=== PATIENT | female | born 1965 | race Caucasian/White ===

== ENCOUNTER 2023-07-06 09:17 | Emergency (ER) | payer BC, SELFPAY ==
--- NOTE | ~2023-07-06 | XR_ITS ---
EXAMINATION: XR LEFT FOOT XR LEFT ANKLE XR CHEST CLINICAL INFORMATION: Productive cough. Trauma to lateral foot. COMPARISON: None. TECHNIQUE: AP, lateral, and mortise views of the left ankle and left foot were obtained. PA and lateral views of the chest were obtained. FINDINGS: Chest: The lungs are well expanded. No focal consolidation. No pleural effusion. Cardiac silhouette is within normal limits. Left ankle: Alignment is anatomic. Joint spaces are preserved. No displace fracture or dislocation. Left foot: Alignment is anatomic. Joint spaces are preserved. No displace fracture or dislocation. Posterior and plantar calcaneal spurs. XR/XR foot LT min 3V IMPRESSION: No acute abnormality.
--- NOTE | ~2023-07-06 | XR_ITS ---
EXAMINATION: XR LEFT FOOT XR LEFT ANKLE XR CHEST CLINICAL INFORMATION: Productive cough. Trauma to lateral foot. COMPARISON: None. TECHNIQUE: AP, lateral, and mortise views of the left ankle and left foot were obtained. PA and lateral views of the chest were obtained. FINDINGS: Chest: The lungs are well expanded. No focal consolidation. No pleural effusion. Cardiac silhouette is within normal limits. Left ankle: Alignment is anatomic. Joint spaces are preserved. No displace fracture or dislocation. Left foot: Alignment is anatomic. Joint spaces are preserved. No displace fracture or dislocation. Posterior and plantar calcaneal spurs. XR/XR ankle LT min 3V IMPRESSION: No acute abnormality.
--- NOTE | ~2023-07-06 | XR_ITS ---
EXAMINATION: XR LEFT FOOT XR LEFT ANKLE XR CHEST CLINICAL INFORMATION: Productive cough. Trauma to lateral foot. COMPARISON: None. TECHNIQUE: AP, lateral, and mortise views of the left ankle and left foot were obtained. PA and lateral views of the chest were obtained. FINDINGS: Chest: The lungs are well expanded. No focal consolidation. No pleural effusion. Cardiac silhouette is within normal limits. Left ankle: Alignment is anatomic. Joint spaces are preserved. No displace fracture or dislocation. Left foot: Alignment is anatomic. Joint spaces are preserved. No displace fracture or dislocation. Posterior and plantar calcaneal spurs. XR/XR chest 2V IMPRESSION: No acute abnormality.
[2023-07-06 09:21] VITALS: BP 149/88; PULSE 80; RESP 18; TEMP 36.1; O2SAT 96; BMI 27.0
--- NOTE | 2023-07-06 09:40 | ED_ITS ---
HPI - URI/Sore Throat General Chief Complaint: Upper Respiratory Symptoms Stated Complaint: cough getting worse Time Seen by Provider: 07/06/23 09:39 Source: patient Mode of arrival: ambulatory Limitations: no limitations History of Present Illness HPI Narrative: 58-year old female with no significant pmhx presents to the ED today with complaint of cough with lange/yellow sputum production x2 weeks. Endorses recent plane flight to [place] two weeks ago, returned 6 days ago. Upon arrival to [place] states she began having throat irritation and soon after developed a productive cough that's been worsening since returning home. Had a zoom appointment with her PCP this am, heart rate was noted to be 95, and was advised to come to the ED for further evaluation. Additionally endorses left foot pain/ swelling s/p jamming her left foot into a piece of furniture while in [place]. States she feels like her toe is broken. Ambulating with steady gait. Denies DANIELS, dizziness, fever, chills, chest pain, palpitations, SOB, N/V, abdominal pain, diarrhea/constipation, LE pain/ swelling. Denies tobacco use. Related Data Previous Rx's Medication Instructions Recorded benzonatate 100 mg capsule 200 mg (2 x 100 mg) PO TID PRN 07/06/23 cough 4 days #24 caps Allergies Allergy/AdvReac Type Severity Reaction Status Date / Time No Known Allergies Allergy Verified 07/06/23 09:20 Review of Systems 2 Review of Systems: Constitutional: No fever, chills, fatigue, night sweats, weight changes ENT/Mouth: No ear pain, hearing loss, nasal congestion, sinus pain, rhinorrhea, sore throat Eyes: No eye pain, swelling, redness, vision changes, discharge Cardio: No chest pain, palpitations, ALBERTO, orthopnea, peripheral edema Pulm: No SOB, + cough, + sputum, No wheezing, dyspnea, hemoptysis GI: No nausea, vomiting, hematemesis, abdominal pain, diarrhea, constipation, hematochezia, melena : No irregular bleeding, dysuria, frequency, urgency, hesitancy, hematuria, flank pain, urinary flow changes MSK: No back pain, neck pain, joint pain, myalgias, +left foot/toe pain Skin: No lesions, rashes Neuro: No weakness, numbness, paresthesias, LOC, dizziness, headache All other systems reviewed and are negative. [facility] [place] Past Medical History Attestation statement: The following information was validated with the patient. Source: old records reviewed and nursing notes reviewed Social History Social History Advance Directives: No Advance Directives Information Provided: Yes Physical Exam 2 Vital Signs: Vital Signs: Last Vital Signs Temp 97 F 07/06/23 09:21 Pulse 80 07/06/23 09:21 Resp 18 07/06/23 09:21 BP 149/88 H 07/06/23 09:21 Pulse Ox 96 07/06/23 09:21 O2 Del Method Room Air 07/06/23 09:21 BMI result Body Mass Index 27.0 Vital signs stable Const: General: cooperative, healthy appearing, comfortable, no acute distress, alert and awake Nutritional Appearance: average body habitus O rientation/consciousness: patient oriented x3 Limitations: no limitations HEENT: Other: + Oral mucous membranes moist. Posterior oropharynx without erythema/ edema. No tonsillar exudates. Uvular midline. Speaking in complete sentences. Controlling secretions. Head: Yes normal to inspection Ears: hearing grossly normal bilaterally General nose exam: Normal external nose present Eyes: General: appearance normal, both eyes and all related structures C onjunctivae: conjunctivae normal Sclerae: sclerae normal Pupils: Equal, round and reactive pupils present EOM: EOMs intact bilaterally Neck: Neck: Yes no lymphadenopathy Chest: Chest palpation & inspection: normal inspection of the chest, normal palpation of entire chest wall, no crepitus and no tenderness Resp: Other: + Effort & Inspection: normal respiratory effort and able to speak in complete sentences Auscultation: clear to auscultation bilaterally Cardio: Rate: regular rate Rhythm: regular rhythm Heart sounds: S1 normal heart sound present and S2 normal heart sound present Peripheral pulses: Peripheral pulses 2+ throughout GI: Inspection: Yes normal to inspection Palpation (GI): Soft to palpation, nontender, no guarding and hepatosplenomegaly present : General: Yes no CVA tenderness Back/Spine/Pelvis: Back: no CVA tenderness Skin: General skin exam: no rashes or lesions noted Neuro: General: patient oriented x3, gait normal and moves all extremities Cranial nerves: Yes CN's II-XII intact bilaterally and Yes Equal, round and reactive pupils present Extrem: General: Yes normal to inspection and Yes full ROM Course Course Course Narrative: 1107-- CBC without leukocytosis or anemia. Chemistry without any acute electrolyte abnormality requiring intervention. Serology negative for COVID and influenza. XR left foot/ankle without acute fracture or abnormality. Patient likely has an msk sprain/strain. Advised her to take Tylenol/ Ibuprofen as needed for pain and to RICE area. CXR does not show infiltrate/ consolidation indicating pneumonia. D dimer is negative- no VTE. Patient's symptoms are consistent with an upper respiratory infection. I will send patient home with tomas benson script for cough. Advised her to follow up with her PCP. Discussed prompt return precautions. All questions answered at this time. Patient is agreeable with disposition and stable for discharge. Medical Decision Making Medical Decision Making [facility] Narrative: 58-year old female with no significant pmhx presents to the ED today with complaint of cough with lange/yellow sputum production x2 weeks. Vital signs are stable. Not tachycardic. Afebrile. RRR. Patient actively coughing in room, hoarse voice. Lungs with rhonchi to left lung base. Right lung CTA. DP/PT pulses 2+ bilaterally. Negative zhanna's sign b/l. Clinical concern for viral syndrome, pneumonia, bronchitis, asthma, PE. Concern for msk sprain/ strain, fracture, dislocation. Unlikely threat to limb, compartment syndrome, NV compromise, DVT. Plan at this time is labs, serology, and imaging. Differential Diagnosis Differential Diagnoses: The differential diagnosis associated with the presentation includes As above. Admission/Observation Not indicated. Lab Data [facility] Lab Attestation statement: I reviewed the patient's lab results. As above. 07/06/23 10:12 07/06/23 10:12 Labs: Lab Results 07/06/23 07/06/23 Range/Units 10:12 10:28 WBC 4.4 L (4.8-10.8) X10*3/uL RBC 4.91 (4.20-5.50) X10*6/uL Hgb 13.5 (12.0-16.0) g/dl Hct 41.1 (37.0-47.0) % MCV 83.7 (80.0-98.0) fL MCH 27.5 (27.0-33.0) pg MCHC 32.8 (31.0-35.0) g/dl RDW 13.5 (11.0-16.0) % Plt Count 216 (160-400) X10*3/uL MPV 9.7 (9.4-12.3) fL Immature Gran % (Auto) 0.7 H (0.0-0.4) % Neut % (Auto) 60.5 (45-73) % Lymph % (Auto) 24.5 (20-40) % Russell % (Auto) 8.2 (2-11) % Eos % (Auto) 5.2 H (0-4) % Baso % (Auto) 0.9 (0-2) % Lymph # (Auto) 1.1 L (1.2-4.9) X10*3/uL Russell # (Auto) 0.4 (0.1-1.2) X10*3/uL Eos # (Auto) 0.2 (0.0-0.4) X10*3/uL Baso # (Auto) 0.0 (0.0-0.2) X10*3/uL Abs Immat Gran (auto) 0.03 (0.00-0.03) X10*3/uL Absolute Neuts (auto) 2.7 (2.0-8.3) x10*3/uL Absolute Nucleated RBC 0.000 (0.0-0.012) X10*3/uL Nucleated RBC % (auto) 0.0 (0.0-0.2) /100WBC D-Dimer High Sensitivty < 150 NG/ML Sodium 144 (135-145) mmol/L Potassium 4.0 (3.3-5.1) mmol/L Chloride 108 (96-108) mmol/L Carbon Dioxide 25 (22-29) mmol/L Anion Gap 15 (12-20) BUN 24 H (9-16) mg/dL Creatinine 0.84 (0.5-1.4) mg/dL Estim Creat Clear Calc 85.6 Estimated GFR > 60 Random Glucose 98 (60-115) mg/dL Calcium 9.3 (8.4-10.2) mg/dL Magnesium 2.1 (1.6-2.6) mg/dL Lipase 26 (8-78) U/L COVID-19 (NENA) Negative (Negative) COVID-19 Clin Com See Note Influenza Type A (MICHAEL) Negative (Negative) Influenza Type B (MICHAEL) Negative (Negative) Influenza A & B Note See Note Independent Interpretation I performed an independent interpretation of an: Plain X-Ray Interpretation: X-ray left foot/ ankle without acute fracture, agree with radiologist's interpretation. Chest x-ray without infiltration or consolidation, agree with radiologist's interpretation. Radiology Impression Discussion of test interpretation with radiology: I have reviewed the radiologist's reading. Radiologist Impression: XR chest 2V IMPRESSION: No acute abnormality. XR foot LT min 3V IMPRESSION: No acute abnormality. External Record Review External record reviewed: Inpatient record Prescription Management I considered prescription management with: Other (Antitussive) Social Determinants Patient?s care significantly limited by Social Determinants of Health including: Other Social Determinant of Health Critical Care Time Critical Care Time Critical Care Time: No Discharge Plan Discharge Clinical Impression: Upper respiratory infection Patient Disposition: Home, Self-Care Instructions: Upper Respiratory Infection (ED) Additional Instructions: Your labs today were reassuring. Your labs did not show concern for acute pulmonary embolism. You tested negative for COVID and influenza. Your chest x-ray was normal and did not show pneumonia. The x-ray of your left foot did not show acute fracture. Your symptoms are consistent with bruising/ msk injury. You likely have an upper respiratory infection. Silvia benson have been sent to your pharmacy. You may also take over the counter cough medicine as needed. You may also take tylenol/ motrin as needed for pain/ fever. Return to the ED if your symptoms persist or worsen. In the case of emergency, call 911. Prescriptions: New benzonatate 100 mg capsule 200 mg PO TID PRN (Reason: cough) 4 Days Qty: 24 0RF Referrals: Cecilia Bae MD [Primary Care Provider] - Stand Alone Forms: Work/School Release Interventions: ED Discharge Assessment Last Done: 07/06/23 11:24 Discharge Date/Time: 07/06/23 11:24
[2023-07-06 10:15] LABS: MANUAL DIFF FLAG NO
[2023-07-06 10:17] LABS: Basophils Percent Auto 0.9 % (0-2); Eosinophils Absolute Auto 0.2 X10*3/uL (0.0-0.4); Eosinophils Percent Auto 5.2 % (0-4); Hematocrit 41.1 % (37.0-47.0); Hemoglobin 13.5 g/dl (12.0-16.0); Imm Gran Abs Auto 0.03 X10*3/uL (0.00-0.03); Imm Gran Pct Auto 0.7 % (0.0-0.4); Lymphocytes Absolute Auto 1.1 X10*3/uL (1.2-4.9); Lymphocytes Percent Auto 24.5 % (20-40); Mean Corpuscular HGB Conc 32.8 g/dl (31.0-35.0); Mean Corpuscular Hemoglobin 27.5 pg (27.0-33.0); Mean Corpuscular Volume 83.7 fL (80.0-98.0); Mean Platelet Volume 9.7 fL (9.4-12.3); Monocytes Absolute Auto 0.4 X10*3/uL (0.1-1.2); Monocytes Percent Auto 8.2 % (2-11); Neutrophils Absolute Auto 2.7 x10*3/uL (2.0-8.3); Neutrophils Percent Auto 60.5 % (45-73); Platelet Count 216 X10*3/uL (160-400); Red Blood Count 4.91 X10*6/uL (4.20-5.50); Red Cell Distribution Width 13.5 % (11.0-16.0); White Blood Count 4.4 X10*3/uL (4.8-10.8)
[2023-07-06 10:34] LABS: Anion Gap 15 (12-20); Blood Urea Nitrogen 24 mg/dL (9-16); Calcium 9.3 mg/dL (8.4-10.2); Carbon Dioxide 25 mmol/L (22-29); Chloride 108 mmol/L (96-108); Creatinine Clr Calc Pharmacy 85.6; Estimated Glomerular Filt Rate > 60; Glucose Random 98 mg/dL (60-115); Lipase 26 U/L (8-78); Magnesium 2.1 mg/dL (1.6-2.6); Sodium 144 mmol/L (135-145)
[2023-07-06 10:37] LABS: COVID-19 Test Negative (Negative); IDNOW Serial# BCCEAD1C
[2023-07-06 10:49] LABS: D Dimer High Sensitivity < 150 NG/ML
[2023-07-06 11:00] LABS: IDNOW Serial# 08D9AD1C; Influenza A Negative (Negative); Influenza B2 Negative (Negative)
== END 2023-07-06 11:24 | disposition home or self-care (01) ==
PROVIDERS: Physician Assistant Medical; Emergency Provider Emergency Medicine; PCP Internal Medicine
DX: J06.9 Acute upper respiratory infection, unspecified (principal); R05.9 Cough, unspecified; M25.572 Pain in left ankle and joints of left foot; R06.02 Shortness of breath; Z11.52 Encounter for screening for COVID-19; Z20.822 Contact with and (suspected) exposure to COVID-19; Z79.899 Other long term (current) drug therapy
CPT/HCPCS: 71046; 73610; 73630; 80048; 83690; 83735; 85025; 85379; 87502; 87635; 99283

== ENCOUNTER 2023-10-18 13:34 | Emergency (ER) | payer BC, SELFPAY ==
--- NOTE | ~2023-10-18 | CT_ITS ---
EXAMINATION: CT ABDOMEN AND PELVIS WITHOUT CONTRAST CLINICAL INFORMATION: Left flank pain. Hydronephrosis on renal ultrasound. COMPARISON: None available. TECHNIQUE: Multidetector volumetric imaging was performed from the superior aspect of the liver through the pubic symphysis. Sagittal and coronal reformatted images were obtained on the technologist's workstation. This CT examination was performed using dose optimization techniques as appropriate, variously including the following: *Automated exposure control *Adjustment of mA and/or kV according to patient size (this includes techniques or standardized protocols for targeted exams where dose is matched to indication/reason for exam; i.e. extremities or head) *Use of iterative reconstruction technique DLP: 538 mGy-cm FINDINGS: LUNG BASES: The visualized lung bases are unremarkable. LIVER, GALLBLADDER, AND BILIARY TREE: The liver is normal in size, shape, and attenuation. No focal hepatic lesion or biliary ductal dilatation is present. The gallbladder is unremarkable with no evidence of radiopaque gallstones, gallbladder wall thickening, or obvious pericholecystic inflammatory changes. PANCREAS: Unremarkable. SPLEEN: Unremarkable. ADRENAL GLANDS: Unremarkable. KIDNEYS AND URETERS: Mild left hydronephrosis from 2 adjacent 2 mm left proximal ureteral stones 2 mm stone in the lower pole of the left kidney. Normal right kidney. BLADDER: Unremarkable. GASTROINTESTINAL TRACT: The small and large bowel are unremarkable. The appendix is seen. ABDOMINAL WALL: No significant hernia is appreciated. LYMPH NODES: Normal. VASCULAR: Unremarkable. PELVIC VISCERA: Unremarkable. OSSEOUS STRUCTURES: Unremarkable. CT/CT abdomen pelvis wo IV con IMPRESSION: Mild left hydronephrosis from 2 adjacent 2 mm left proximal ureteral stones. Small nonobstructing left renal stone. Fleischner guidelines were followed.
[2023-10-18 14:28] VITALS: BP 169/87; PULSE 80; RESP 16; TEMP 36.5; O2SAT 96; BMI 26.5
--- NOTE | 2023-10-18 14:29 | ED.GENADULT ---
HPI - General Adult General Chief complaint: Abdominal Pain Stated complaint: Back pain, blood in urine - sent by Time Seen by Provider: 10/18/23 22:24 Source: patient Mode of arrival: ambulatory History of Present Illness HPI narrative: 58-year-old female who at the time of my interview has had complete resolution of symptoms but states that since Monday night she has had persistent with varying degrees of severity of pain left flank pain without associated nausea, vomiting, fever chills but reports hematuria and has had a recent ultrasound through her primary care provider the demonstrated hydronephrosis. She does have a remote history of kidney stones. Related Data Previous Rx's Medication Instructions Recorded benzonatate 100 mg capsule 200 mg (2 x 100 mg) PO TID PRN 07/06/23 cough 4 days #24 caps ketorolac 10 mg tablet 10 mg PO Q6H PRN pain 5 days #20 10/18/23 tabs prednisone 20 mg tablet 20 mg PO DAILY #5 tabs 10/18/23 tamsulosin 0.4 mg capsule (Flomax) 0.4 mg PO BEDTIME #5 caps 10/18/23 Allergies Allergy/AdvReac Type Severity Reaction Status Date / Time No Known Allergies Allergy Verified 10/18/23 14:28 Review of Systems Review of Systems: Pertinent positives and negatives as stated in HPI PMF Past Medical History Source: nursing notes reviewed Social History Social History Smoked in Last 30 Days: No Use of substances other than those prescribed or required for medical reasons: No Advance Directives: No Advance Directives Information Provided: No Patient : No Physical Exam ED Vital Signs: Vital Signs - 24 hr 10/18/23 14:28 10/18/23 22:01 Temperature 97.7 F 98.2 F Pulse Rate 80 73 Respiratory Rate 16 16 Blood Pressure 169/87 H 173/91 H Pulse Oximetry 96 98 Oxygen Delivery Method Room Air Room Air BMI result Body Mass Index 26.5 VITAL SIGNS: Reviewed. GENERAL: Well developed, well nourished, in no acute distress. HEAD: Normocephalic/atraumatic EYES: PERRLA, EOMI EARS: Ext canals without abnormality NOSE: Nares patent bilateral OROPHARYNX: no oral lesions noted, posterior pharynx clear NECK: Supple, no adenopathy LUNGS: Normal breath sounds. No adventitious sounds or accessory muscle use. SpO2<98> CARDIOVASCULAR: Regular rate and rhythm without noted murmurs ABDOMEN: Soft, non-tender, non-distended with bowel sounds. MUSCULOSKELETAL: No tenderness, deformities, or effusions noted on gross inspection. EXTREMITIES: No cyanosis, clubbing or edema. SKIN: Inspection of the skin reveals no rashes NEUROLOGIC: Alert and oriented x 4. Strength and sensation to light touch were grossly intact x 4. Course Course Course Narrative: RME:?58 yo female here w/ hematuria x3 days. Coffee colored urine all monday (3 days ago) which resolved by monday. UA with PCP the following day. Renal US yesterday which showed hydronephrosis without stone. Hematuria & left flank pain began again this morning. PCP advised to come to ED for ct scan. +left CVAT labs, UA, ct ordered. Full HPI, ROS and PE to be performed by the primary ED provider. Medications Administered Discontinued Medications Generic Name Dose Route Start Last Admin Trade Name Freq PRN Reason Stop Dose Admin Sodium Chloride 1,000 mls @ 999 mls/hr 10/18/23 22:10 10/18/23 23:24 Ns IV 10/18/23 23:10 Infused .Q1H1M ONE Infusion Ketorolac Tromethamine 15 mg 10/18/23 22:10 10/18/23 22:12 Ketorolac Tromethamine 15 Mg/Ml Vial IVPUSH 10/18/23 22:11 15 mg ONCE ONE Administration Ondansetron HCl 4 mg 10/18/23 22:10 10/18/23 22:12 Ondansetron Hcl 4 Mg/2 Ml Vial IVPUSH 10/18/23 22:11 4 mg ONCE ONE Administration Medical Decision Making Medical Decision Making [facility] Narrative: 58-year-old female with history and clinical presentation, DDX: Renal colic, UTI, low clinical suspicion for other intra-abdominal infection and there is no history of trauma. I reviewed all investigations and hematologic indices are negative for leukocytosis/left shift/anemia/thrombocytopenia. Chemistry indices do not demonstrate an ARYA and there is no electrolyte derangements. Urinalysis demonstrates hematuria but otherwise no presence of bacteria or nitrites. CT scan demonstrates mild left hydronephrosis and reports to adjacent 2 mm proximal ureteral stones. I discussed all results and findings with the patient and she agrees for referral to [facility]. Differential Diagnosis Differential Diagnoses: The differential diagnosis associated with the presentation includes Please see the discussion above Admission/Observation Consideration of admission/observation: Escalation of care including admission/observation considered Please see the discussion above Lab Data [facility]DM Lab Attestation statement: I reviewed the patient's lab results. Please see the discussion above 10/18/23 16:19 10/18/23 16:19 Labs: Lab Results 10/18/23 Range/Units 16:19 WBC 7.0 (4.8-10.8) X10*3/uL RBC 5.23 (4.20-5.50) X10*6/uL Hgb 14.1 (12.0-16.0) g/dl Hct 43.1 (37.0-47.0) % MCV 82.4 (80.0-98.0) fL MCH 27.0 (27.0-33.0) pg MCHC 32.7 (31.0-35.0) g/dl RDW 12.9 (11.0-16.0) % Plt Count 225 (160-400) X10*3/uL MPV 10.6 (9.4-12.3) fL Immature Gran % (Auto) 0.3 (0.0-0.4) % Neut % (Auto) 68.2 (45-73) % Lymph % (Auto) 23.1 (20-40) % [place] % (Auto) 6.2 (2-11) % Eos % (Auto) 1.6 (0-4) % Baso % (Auto) 0.6 (0-2) % Lymph # (Auto) 1.6 (1.2-4.9) X10*3/uL [place] # (Auto) 0.4 (0.1-1.2) X10*3/uL Eos # (Auto) 0.1 (0.0-0.4) X10*3/uL Baso # (Auto) 0.0 (0.0-0.2) X10*3/uL Abs Immat Gran (auto) 0.02 (0.00-0.03) X10*3/uL Absolute Neuts (auto) 4.8 (2.0-8.3) x10*3/uL Absolute Nucleated RBC 0.000 (0.0-0.012) X10*3/uL Nucleated RBC % (auto) 0.0 (0.0-0.2) /100WBC Sodium 141 (135-145) mmol/L Potassium 4.5 (3.3-5.1) mmol/L Chloride 107 (96-108) mmol/L Carbon Dioxide 25 (22-29) mmol/L Anion Gap 14 (12-20) BUN 18 H (9-16) mg/dL Creatinine 0.95 (0.5-1.4) mg/dL Estim Creat Clear Calc 75.1 Estimated GFR > 60 Random Glucose 96 (60-115) mg/dL Calcium 9.7 (8.4-10.2) mg/dL Magnesium 2.1 (1.6-2.6) mg/dL Lipase 21 (8-78) U/L Urine Color Yellow Urine Appearance Clear Urine pH 5.5 (5.0-9.0) Ur Specific [place] 1.010 (1.005-1.025) Urine Protein Trace (Neg-Trace) mg/dL Urine Glucose (UA) Negative (Negative) mg/dL Urine Ketones Negative (Negative) mg/dL Urine Blood Large (3+) H (Negative) Urine Nitrite Negative (Negative) Ur Leukocyte Esterase Negative (Negative) Urine RBC >20 H (0-2) /HPF Urine WBC 0-5 (0-5) /HPF Ur Squamous Epith Cells 0-2 (0-2) /HPF Urine Bacteria None Seen (None Seen) Hyaline Casts 0-2 (0-2) /LPF Radiology Impression Discussion of test interpretation with radiology: I have reviewed the radiologist's reading. Radiologist Impression: Please see the discussion above Critical Care Time Critical Care Time Critical Care Time: Yes Total Critical Care Time: 30 Attestation: I personally attest to this time spent taking care of the patient. Discharge Plan Discharge Clinical Impression: Ureterolithiasis, Renal colic, Hydronephrosis Patient Disposition: Home, Self-Care Instructions: Renal Colic (ED), Low Oxalate Diet (ED), Hydronephrosis (ED), Ureteral Stones (ED) Additional Instructions: 1. Tylenol 1000 mg, orally, every 6 hours as needed for pain control. Do not exceed 4000 mg within 24 hours. 2. You have been given a referral to follow-up with [facility], please call the office 1st thing in the morning to set up an appointment for re-evaluation further outpatient management. Do not hesitate to return to the emergency room should the pain become too much. Prescriptions: New ketorolac 10 mg tablet 10 mg PO Q6H PRN (Reason: pain) 5 Days Qty: 20 0RF Rx Instructions: Patient received Toradol in the emergency room. tamsulosin [Flomax] 0.4 mg capsule 0.4 mg PO BEDTIME Qty: 5 0RF prednisone 20 mg tablet 20 mg PO DAILY Qty: 5 0RF No Action benzonatate 100 mg capsule 200 mg PO TID PRN (Reason: cough) 4 Days Qty: 24 0RF Referrals: Cecilia Bae MD [Primary Care Provider] - Ruben Mancia MD [Physician] -
[2023-10-18 16:23] LABS: MANUAL DIFF FLAG NO
[2023-10-18 16:27] LABS: Appearance Urine Clear; Basophils Percent Auto 0.6 % (0-2); Color Urine Yellow; Eosinophils Absolute Auto 0.1 X10*3/uL (0.0-0.4); Eosinophils Percent Auto 1.6 % (0-4); Glucose Urine UA Negative (Negative); Hematocrit 43.1 % (37.0-47.0); Hemoglobin 14.1 g/dl (12.0-16.0); Imm Gran Abs Auto 0.02 X10*3/uL (0.00-0.03); Imm Gran Pct Auto 0.3 % (0.0-0.4); Leukocyte Esterase Urine Negative (Negative); Lymphocytes Absolute Auto 1.6 X10*3/uL (1.2-4.9); Lymphocytes Percent Auto 23.1 % (20-40); Mean Corpuscular HGB Conc 32.7 g/dl (31.0-35.0); Mean Corpuscular Volume 82.4 fL (80.0-98.0); Mean Platelet Volume 10.6 fL (9.4-12.3); Monocytes Absolute Auto 0.4 X10*3/uL (0.1-1.2); Monocytes Percent Auto 6.2 % (2-11); Neutrophils Absolute Auto 4.8 x10*3/uL (2.0-8.3); Neutrophils Percent Auto 68.2 % (45-73); Nitrite Urine Negative (Negative); PH 5.5 (5.0-9.0); Platelet Count 225 X10*3/uL (160-400); Red Blood Count 5.23 X10*6/uL (4.20-5.50); Red Cell Distribution Width 12.9 % (11.0-16.0); UMIC TRIGGER UACC YES; Urine Blood Large (3+) (Negative); Urine Ketones Negative (Negative); Urine Protein Trace mg/dL (Neg-Trace)
[2023-10-18 16:41] LABS: Anion Gap 14 (12-20); Blood Urea Nitrogen 18 mg/dL (9-16); Calcium 9.7 mg/dL (8.4-10.2); Carbon Dioxide 25 mmol/L (22-29); Chloride 107 mmol/L (96-108); Creatinine Clr Calc Pharmacy 75.1; Estimated Glomerular Filt Rate > 60; Glucose Random 96 mg/dL (60-115); Lipase 21 U/L (8-78); Magnesium 2.1 mg/dL (1.6-2.6); Potassium 4.5 mmol/L (3.3-5.1); Sodium 141 mmol/L (135-145)
[2023-10-18 18:08] LABS: Bacteria Urine None Seen (None Seen); Hyaline Casts Urine 0-2 /LPF (0-2); RBC Urine >20 /HPF (0-2); Squamous Epithelial Cell Urine 0-2 /HPF (0-2); WBC Urine 0-5 /HPF (0-5)
[2023-10-18 22:01] VITALS: BP 173/91; PULSE 73; RESP 16; TEMP 36.8; O2SAT 98
--- NOTE | 2023-10-18 22:03 | MHC.EDTECH ---
This tech assumed care of this pt upon arrival. pt changed into a hospital gown VS completed and reported to RN
[2023-10-18] MEDS: 0.9 % Sodium Chloride 1,000 ML 999 ML IV (22:12)
[2023-10-18] MEDS: ondansetron HCL 4 MG/2 ML VIAL IVPUSH (22:12)
[2023-10-18] MEDS: Ketorolac Tromethamine 15 MG/ML VIAL IVPUSH (22:12)
== END 2023-10-19 00:10 | disposition home or self-care (01) ==
PROVIDERS: Physician Assistant Medical; Emergency Provider Student in an Organized Health Care Education/Training Program; PCP Internal Medicine
DX: N13.2 Hydronephrosis with renal and ureteral calculous obstruction (principal)
CPT/HCPCS: 36415; 74176; 80048; 81001; 83690; 83735; 85025; 96361; 96374; 96375; 99285; J1885; J2405

== ENCOUNTER 2023-11-09 10:54 | Outpatient (AMB) | payer BC, SELFPAY ==
--- NOTE | 2023-11-09 11:30 | MHC.OFFVIS ---
Intake Intake Visit Reasons: hydronephrosis/ ureteral stones Intake Note: New Patient presents for initial visit for hydronephrosis and ureteral stones Urology Medications: none Blood Thinner: none Physical Integration Practitioner Required: No Accompanied by: Self / Same As Patient Allergies No Known Allergies Allergy (Verified 11/12/23 13:33) Medication List - Last Reconciled 11/12/23 by MAXIMUS Person No Known Home Meds HPI HPI Comments History of Present Illness Details Eloina is a very pleasant 58-year-old female patient of Dr. Bae. She presents to the office today as a new patient for nephrolithiasis. In discussion with the patient today she reports noting ongoing left sided flank pain and hematuria approximately 1 month ago at which time she followed up with her PCP as well as [facility] for further assessment evaluation. In review of patient's chart it appears CT of the abdomen was ordered and performed. These results reviewed with the patient today. Mild left hydronephrosis with 2 adjacent 2 mm left proximal ureteral stones. Small nonobstructing left renal stone. She reports pain and hematuria has since subsided. When asked she does report a longstanding history of nephrolithiasis approximately 10 years ago however never requiring surgical intervention. Discussed at length potential causes of nephrolithiasis. Discussed obtaining retroperitoneal ultrasound for further assessment evaluation. Again, she reports pain has since subsided however did not feel herself to have urinated her stones. In office urinalysis results reviewed with the patient today. She otherwise denies any bothersome urinary issues or concerns at this time. She denies urinary urgency, urinary frequency, incontinence, nocturia, hematuria, dysuria, foul smelling urine, changes to urinary stream, flank pain, fever, and or chills. She is happy with her current voiding parameters. When asked she reports to be drinking plenty of water daily. She otherwise offers no other issues or concerns at this time. Review of Systems Const All systems reviewed & are unremarkable except as noted in HPI and below Physical Exam Const General: cooperative, healthy appearing, comfortable, no acute distress, well developed, alert and awake Orientation/consciousness: patient oriented x3 Limitations: no limitations HEENT Head: Yes normal to inspection, Yes normocephalic and Yes atraumatic Ears: hearing grossly normal bilaterally Eyes General: appearance normal, both eyes and all related structures Neck Neck: Yes normal visual inspection and Yes trachea midline Chest Chest palpation & inspection: normal inspection of the chest Resp Effort & Inspection: normal respiratory effort and able to speak in complete sentences Cardio Rate: regular rate GI Inspection: Yes normal to inspection General: Yes no CVA tenderness Back/Spine/Pelvis Back: no CVA tenderness Skin General skin exam: no rashes or lesions noted Neuro General: patient oriented x3 Extrem General: Yes normal to inspection Psych Appearance: grossly normal and well kempt Mental Status: mental status grossly normal Speech and movement: Normal speech and movement present and Clear speech present Affect: normal affect Attitude: cooperative Thought process: Normal thought process present Thought content: Normal thought content present Insight: Good insight present (Psych) Judgement: Good judgement present (Psych) Results AMB Urinalysis, Automated UA Leukoctes 0 Jacqueline/uL Last Edit by [employer] on 11/09/23 11:48 UA Nitrite Negative Last Edit by [employer] on 11/09/23 11:48 UA Urobilinogen 0.2 mg/dL Last Edit by [employer] on 11/09/23 11:48 UA Protein 0 mg/dL Last Edit by [employer] on 11/09/23 11:48 UA pH 6.0 Last Edit by [employer] on 11/09/23 11:48 UA Blood 0 Mariano/uL Last Edit by [employer] on 11/09/23 11:48 UA Specific [place] 1.015 Last Edit by [employer] on 11/09/23 11:48 UA Ketone Negative Last Edit by [employer] on 11/09/23 11:48 UA Bilirubin 0 mg/dL Last Edit by [employer] on 11/09/23 11:48 UA Glucose 0 mg/dL Last Edit by [employer] on 11/09/23 11:48 Results Reviewed Results Reviewed: Laboratory Last Values Urine pH (Auto) 6.0 11/09/23 11:32 Specific [place] (Auto) 1.015 11/09/23 11:32 Urine Protein (Auto) 0 mg/dL 11/09/23 11:32 Glucose (UA)(Auto) 0 mg/dL 11/09/23 11:32 Urine Ketones (Auto) Negative 11/09/23 11:32 Urine Blood (Auto) 0 Mariano/uL 11/09/23 11:32 Urine Nitrite (Auto) Negative 11/09/23 11:32 Urine Bilirubin (Auto) 0 mg/dL 11/09/23 11:32 Urine Urobilinogen (Auto) 0.2 mg/dL 11/09/23 11:32 Leukocyte Esterase (Auto) 0 Jacqueline/uL 11/09/23 11:32 Date of Service: 10/18/23 EXAMINATION: CT ABDOMEN AND PELVIS WITHOUT CONTRAST FINDINGS: LUNG BASES: The visualized lung bases are unremarkable. LIVER, GALLBLADDER, AND BILIARY TREE: The liver is normal in size, shape, and attenuation. No focal hepatic lesion or biliary ductal dilatation is present. The gallbladder is unremarkable with no evidence of radiopaque gallstones, gallbladder wall thickening, or obvious pericholecystic inflammatory changes. PANCREAS: Unremarkable. SPLEEN: Unremarkable. ADRENAL GLANDS: Unremarkable. KIDNEYS AND URETERS: Mild left hydronephrosis from 2 adjacent 2 mm left proximal ureteral stones 2 mm stone in the lower pole of the left kidney. Normal right kidney. BLADDER: Unremarkable. GASTROINTESTINAL TRACT: The small and large bowel are unremarkable. The appendix is seen. ABDOMINAL WALL: No significant hernia is appreciated. LYMPH NODES: Normal. VASCULAR: Unremarkable. PELVIC VISCERA: Unremarkable. OSSEOUS STRUCTURES: Unremarkable. IMPRESSION: Mild left hydronephrosis from 2 adjacent 2 mm left proximal ureteral stones. Small nonobstructing left renal stone. Assessment & Plan Assessment & Plan (1) Nephrolithiasis: Code(s): N20.0 - Calculus of kidney Plan In office urinalysis results reviewed with the patient today; as noted above. Recent CT results reviewed with the patient today; as noted above. Discussed at length potential causes nephrolithiasis. Will obtain retroperitoneal ultrasound for further assessment evaluation. Continue drinking plenty of water daily. Discussed adding 1 oz of lemon juice to water daily. Patient currently denies any bothersome urinary issues or concerns. She is happy with her current voiding parameters. Discussed possible near future metabolic workup with labs and 24 hour urine collection Follow-up in 1-2 months with imaging to be completed prior; or sooner with any issues, concerns, and or questions. Orders: Orders US renal BI 11/09/23 N20.0 - Calculus of kidney AMB Urinalysis Automated 11/09/23 Z13.9 - Encounter for screening, unspecified Patient Instructions: The patient had an opportunity to ask questions regarding the treatment plan. All questions were answered. Physical exam, labs, and imaging were discussed and reviewed in detail. As well as risks, benefits, and discussion of treatment choices. No major barriers to understanding were identified. The patient expressed understanding and agreement with the above treatment plan. The patient was made aware they should contact our office by phone for worsening of their current condition, the appearance of new symptoms, or with any questions or concerns. Compliance is encouraged with any medications and follow up testing that is ordered. It is a privilege to be allowed the opportunity to participate in? your urological care.? Again, if you have any questions or concerns If you have any questions or concerns please do not hesitate to contact me. The office is [phone]. This note is constructed using voice recognition software. While every effort has been made to ensure accuracy lodge sales associate errors may have been included. Yours sincerely, MAXIMUS Person Coding Level of Care Code New Pt Level 4 (67796) Diagnoses Nephrolithiasis N20.0 Time Spent (min) 35
== END 2023-11-09 12:42 | disposition home or self-care (01) ==
PROVIDERS: PCP Internal Medicine; Visit Provider Nurse Practitioner Family
DX: N20.0 Calculus of kidney (principal)
CPT/HCPCS: 99204

== ENCOUNTER → 2023-11-09 10:54 | Outpatient (BNVA) | payer BC, SELFPAY | PROVIDERS: PCP Internal Medicine; Visit Provider Nurse Practitioner Family | DX: N13.2 Hydronephrosis with renal and ureteral calculous obstruction (principal) | CPT/HCPCS: 81003 ==

== ENCOUNTER 2024-01-11 07:46 | Outpatient (REF) | payer BC, SELFPAY ==
--- NOTE | ~2024-01-11 | US_ITS ---
EXAMINATION: US RETROPERITONEAL LIMITED (RENAL ONLY) CLINICAL INFORMATION: Calculus of kidney. COMPARISON: CT abdomen and pelvis 10/18/2023. TECHNIQUE: Real-time imaging of the kidneys. Limited visualization due to bowel gas. FINDINGS: RIGHT KIDNEY: 11.3 x 4.2 x 4.9 cm (SAG x AP x TRV). No hydronephrosis. No renal calculi. Renal cortical thickness is normal. Limited visualization. LEFT KIDNEY: 11.1 x 5.4 x 5.0 cm (SAG x AP x TRV). Left renal 7 mm lower pole calculus. Mild left caliectasis. Renal cortical thickness is normal. Limited visualization. ADDITIONAL FINDINGS: Bilateral ureteral jets are demonstrated. US/US renal BI IMPRESSION: Left renal 7 mm lower pole calculus. Mild left caliectasis.
== END 2024-01-11 07:47 | disposition home or self-care (01) ==
LOC: HO.US 07:46
PROVIDERS: PCP Internal Medicine; Visit Provider Nurse Practitioner Family
DX: N20.0 Calculus of kidney (principal)
CPT/HCPCS: 76775

== ENCOUNTER 2024-01-22 14:04 | Outpatient (AMB) | payer BC, SELFPAY ==
--- NOTE | 2024-01-22 14:14 | A.OFFVIS_ITS ---
Intake Visit Reasons: hydronephrosis- Follow up/Ultrasound Allergies No Known Allergies Allergy (Verified 11/12/23 13:33) HPI Comments Details: 01/22/2024--Eloina is evaluated via tele video visit, follow-up kidney stones and hydronephrosis. The patient was last evaluated 11/09/2023 by the nurse practitioner for symptoms of left flank pain the and hematuria. CT imaging 10/18/2023 noted left hydronephrosis with small distal ureteral stones, and a 2 mm nonobstructing left kidney stone. The patient states she is doing well she denies any renal colic symptoms. She had follow-up imaging, renal ultrasound 01/11/2024. I have reviewed the results hydronephrosis is resolved. Left kidney stone measured at 7 mm, likely larger than actual size as in comparison with CT scan was [address] imaging modality. I have discussed further evaluation with 24 hour urine collection. She will follow-up with the nurse practitioner to review results. Review of chart: 11/09/23--Eloina is a very pleasant 58-year-old female patient of Dr. Bae. She presents to the office today as a new patient for nephrolithiasis. In discussion with the patient today she reports noting ongoing left sided flank pain and hematuria approximately 1 month ago at which time she followed up with her PCP as well as [facility] for further assessment evaluation. In review of patient's chart it appears CT of the abdomen was ordered and performed. These results reviewed with the patient today. Mild left hydronephrosis with 2 adjacent 2 mm left proximal ureteral stones. Small nonobstructing left renal stone. She reports pain and hematuria has since subsided. When asked she does report a longstanding history of nephrolithiasis approximately 10 years ago however never requiring surgical intervention. Discussed at length potential causes of nephrolithiasis. Discussed obtaining retroperitoneal ultrasound for further assessment evaluation. Again, she reports pain has since subsided however did not feel herself to have urinated her stones. In office urinalysis results reviewed with the patient today. She otherwise denies any bothersome urinary issues or concerns at this time. She denies urinary urgency, urinary frequency, incontinence, nocturia, hematuria, dysuria, foul smelling urine, changes to urinary stream, flank pain, fever, and or chills. She is happy with her current voiding parameters. When asked she reports to be drinking plenty of water daily. She otherwise offers no other issues or concerns at this time. Review of Systems Const All systems reviewed & are unremarkable except as noted in HPI and below Reports no additional complaints Eyes Reports no additional complaints ENT Reports no additional complaints Card Reports no additional complaints Resp Reports no additional complaints GI Reports no additional complaints Reports as per HPI Musc Reports no additional complaints Skin/Breast Reports system reviewed and no additional complaints, except as documented Neuro Reports no additional complaints Psych Reports no additional complaints Endo Reports no additional complaints Rubén/Lymph Reports no additional complaints Aller/Immun Reports no additional complaints Telehealth Telehealth Telehealth Platform: [employer] Location of provider rendering services: practice address Location of patient: address on file Patient Identification confirmed using: Name, : Yes Telehealth method: video Patient verbally consented to treatment: Yes Patient verbally consented to billing insurance company: Yes Patient informed of any privacy concerns related to visit: Yes Results Reviewed Results Reviewed: Date of Service: 01/11/24 EXAMINATION: US RETROPERITONEAL LIMITED (RENAL ONLY) CLINICAL INFORMATION: Calculus of kidney. COMPARISON: CT abdomen and pelvis 10/18/2023. TECHNIQUE: Real-time imaging of the kidneys. Limited visualization due to bowel gas. FINDINGS: RIGHT KIDNEY: 11.3 x 4.2 x 4.9 cm (SAG x AP x TRV). No hydronephrosis. No renal calculi. Renal cortical thickness is normal. Limited visualization. LEFT KIDNEY: 11.1 x 5.4 x 5.0 cm (SAG x AP x TRV). Left renal 7 mm lower pole calculus. Mild left caliectasis. Renal cortical thickness is normal. Limited visualization. ADDITIONAL FINDINGS: Bilateral ureteral jets are demonstrated. IMPRESSION: Left renal 7 mm lower pole calculus. Mild left caliectasis. Date of Service: 10/18/23 EXAMINATION: CT ABDOMEN AND PELVIS WITHOUT CONTRAST FINDINGS: LUNG BASES: The visualized lung bases are unremarkable. LIVER, GALLBLADDER, AND BILIARY TREE: The liver is normal in size, shape, and attenuation. No focal hepatic lesion or biliary ductal dilatation is present. The gallbladder is unremarkable with no evidence of radiopaque gallstones, gallbladder wall thickening, or obvious pericholecystic inflammatory changes. PANCREAS: Unremarkable. SPLEEN: Unremarkable. ADRENAL GLANDS: Unremarkable. KIDNEYS AND URETERS: Mild left hydronephrosis from 2 adjacent 2 mm left proximal ureteral stones 2 mm stone in the lower pole of the left kidney. Normal right kidney. BLADDER: Unremarkable. GASTROINTESTINAL TRACT: The small and large bowel are unremarkable. The appendix is seen. ABDOMINAL WALL: No significant hernia is appreciated. LYMPH NODES: Normal. VASCULAR: Unremarkable. PELVIC VISCERA: Unremarkable. OSSEOUS STRUCTURES: Unremarkable. IMPRESSION: Mild left hydronephrosis from 2 adjacent 2 mm left proximal ureteral stones. Small nonobstructing left renal stone. Assessment & Plan Assessment & Plan (1) Nephrolithiasis: Code(s): N20.0 - Calculus of kidney Category: Medical Plan Left nephrolithiasis. Left hydronephrosis resolved. Discussed further evaluation with 24 hour urine collection follow-up with RIM FIRE CHARGER OPERATOR. Patient Instructions: The patient had an opportunity to ask questions regarding treatment plan. The patient expressed understanding and agreement with the above treatment plan. The patient is aware they should contact our office by phone for worsening of their current condition or the appearance of new symptoms. Compliance is encouraged with any medications and followup testing that is ordered. It is a privilege to be allowed the opportunity to participate in the urologic care of your patient. If you have any questions or concerns regarding treatment for the above conditions please do not hesitate to contact me. The office telephone contact is [phone]. This note is constructed in part using voice recognition software. While every effort has been made to ensure accuracy sharepoint solutions architect errors may have been included. Yours sincerely, Richard Pisano MD Coding Level of Care Code Tele Est Pt Level 4 (88369) Diagnoses Nephrolithiasis N20.0
== END 2024-01-22 14:34 | disposition home or self-care (01) ==
LOC: HO.HUSH 14:04
PROVIDERS: PCP Internal Medicine; Visit Provider Urology
DX: N20.0 Calculus of kidney (principal)
CPT/HCPCS: 99213

== ENCOUNTER → 2024-01-22 14:04 | Outpatient (BNVA) | payer BC, SELFPAY | PROVIDERS: PCP Internal Medicine; Visit Provider Urology ==

== ENCOUNTER 2024-08-07 14:59 | Outpatient (AMB) | payer BC, SELFPAY ==
--- NOTE | 2024-08-07 15:00 | A.OFFVIS_ITS ---
Intake Visit Reasons: litholink follow up(set) Intake Note: Patient presents for follow up on: nephrolithiasis and litholink results Urology Medications: none Blood Thinner: none Day Haul Youth Supervisor Required: No Accompanied by: Self / Same As Patient Allergies No Known Allergies Allergy (Verified 08/10/24 23:53) Medication List - Last Reconciled 08/10/24 by MAXIMUS Person fluconazole mg PO HPI Comments Details: Eloina is a very pleasant 59-year-old female patient of Dr. Bae. She presents to the office today for follow-up of her nephrolithiasis. In discussion with the patient today she reports to be doing and feeling well. Of note, patient was seen approximately [address] Enrique Camejo at which time recommendations were made for metabolic workup and a 24 hour urine collection was ordered and obtained. These results were reviewed with the patient today. Low urine volume at 1.30, we discussed consideration of treatment with potassium citrate however patient would like to manage urine volume as initial therapy. We discussed low oxalate diet and specific foods to avoid including certain green leafy vegetables, chocalate, nuts, tea, beets, rubarb; low sodium, decreased use of animal protein and the importance of hydration drinking up to 2-2.5 liters of fluids and use of adding lemon to water to increase citrate in the diet. Renal ultrasound 02/01 notes 7 mm left kidney stone otherwise no other nephrolithiasis and or hydronephrosis noted. She has a longstanding history of nephrolithiasis however never requiring surgical intervention. We discussed at length potential causes of nephrolithiasis as well as further intervention to include surgical intervention verses surveillance monitoring. Risks and benefits of these interventions were discussed. Discussed obtaining retroperitoneal ultrasound for further assessment evaluation. In office urinalys is results reviewed with the patient today. She otherwise denies any bothersome urinary issues or concerns at this time. She denies urinary urgency, urinary frequency, incontinence, nocturia, hematuria, dysuria, foul smelling urine, changes to urinary stream, flank pain, fever, and or chills. She is happy with her current voiding parameters. She otherwise offers no other issues or concerns at this time. Review of Systems Const All systems reviewed & are unremarkable except as noted in HPI and below Physical Exam Const General: cooperative, healthy appearing, comfortable, no acute distress, well developed, alert and awake Orientation/consciousness: patient oriented x3 Limitations: no limitations HEENT Head: Yes normal to inspection, Yes normocephalic and Yes atraumatic Ears: hearing grossly normal bilaterally Eyes General: appearance normal, both eyes and all related structures Neck Neck: Yes normal visual inspection and Yes trachea midline Chest Chest palpation & inspection: normal inspection of the chest Resp Effort & Inspection: normal respiratory effort and able to speak in complete sentences Cardio Rate: regular rate GI Inspection: Yes normal to inspection General: Yes no CVA tenderness Back/Spine/Pelvis Back: no CVA tenderness Skin General skin exam: no rashes or lesions noted Neuro General: patient oriented x3 Extrem General: Yes normal to inspection Psych Appearance: grossly normal and well kempt Mental Status: mental status grossly normal Speech and movement: Normal speech and movement present and Clear speech present Affect: normal affect Attitude: cooperative Thought process: Normal thought process present Thought content: Normal thought content present Insight: Good insight present (Psych) Judgement: Good judgement present (Psych) Results AMB Urinalysis, Automated UA Leukoctes 15 Jacqueline/uL Last Edit by [email or web address] on 08/07/24 15:27 UA Nitrite Last Edit by [employer] on 08/07/24 15:27 UA Urobilinogen 0.2 mg/dL Last Edit by [email or web address] on 08/07/24 15:27 UA Protein 15 mg/dL Last Edit by [email or web address] on 08/07/24 15:27 UA pH 6.0 Last Edit by [email or web address] on 08/07/24 15:27 UA Blood 10 Mariano/uL Last Edit by [email or web address] on 08/07/24 15:27 UA Specific [place] 1.030 Last Edit by [email or web address] on 08/07/24 15:27 UA Ketone Last Edit by [email or web address] on 08/07/24 15:27 UA Bilirubin 0 mg/dL Last Edit by [employer] on 08/07/24 15:27 UA Glucose 0 mg/dL Last Edit by [employer] on 08/07/24 15:27 Results Reviewed Results Reviewed: Laboratory Last Values Urine pH (Auto) 6.0 08/07/24 15:03 Specific [place] (Auto) 1.030 08/07/24 15:03 Urine Protein (Auto) 15 mg/dL 08/07/24 15:03 Glucose (UA)(Auto) 0 mg/dL 08/07/24 15:03 Urine Blood (Auto) 10 Mariano/uL 08/07/24 15:03 Urine Bilirubin (Auto) 0 mg/dL 08/07/24 15:03 Urine Urobilinogen (Auto) 0.2 mg/dL 08/07/24 15:03 Leukocyte Esterase (Auto) 15 Jacqueline/uL 08/07/24 15:03 Assessment & Plan Assessment & Plan (1) Nephrolithiasis: Code(s): N20.0 - Calculus of kidney Category: Medical Plan In office urinalysis results reviewed with the patient today; as noted above. Recent 24 hour urine collection results reviewed with the patient today; as noted above. Discussed at length potential causes nephrolithiasis as well as further intervention in risks and benefits of these interventions. Continue drinking plenty of water daily. Continue adding 1 oz of lemon juice to water daily. Patient currently denies any bothersome urinary issues or concerns. She is happy with her current voiding parameters. Will obtain renal ultrasound in 6 months. Follow-up in 6 months with imaging to be completed prior; or sooner with any issues, concerns, and or questions. Orders: Orders US renal BI 6 Months N20.0 - Calculus of kidney AMB Urinalysis Automated 08/07/24 Z13.9 - Encounter for screening, unspecified Patient Instructions: The patient had an opportunity to ask questions regarding the treatment plan. All questions were answered. Physical exam, labs, and imaging were discussed and reviewed in detail. As well as risks, benefits, and discussion of treatment choices. No major barriers to understanding were identified. The patient expressed understanding and agreement with the above treatment plan. The patient was made aware they should contact our office by phone for worsening of their current condition, the appearance of new symptoms, or with any questions or concerns. Compliance is encouraged with any medications and follow up testing that is ordered. It is a privilege to be allowed the opportunity to participate in? your urological care.? Again, if you have any questions or concerns If you have any questions or concerns please do not hesitate to contact me. The office is [phone]. This note is constructed using voice recognition software. While every effort has been made to ensure accuracy chemical test engineer errors may have been included. Yours sincerely, MAXIMUS Person Coding Level of Care Code Est Pt Level 3 (12456) Complex EM visit Add On G2211 Diagnoses Nephrolithiasis N20.0
== END 2024-08-07 15:46 | disposition home or self-care (01) ==
PROVIDERS: PCP Internal Medicine; Referring Provider Internal Medicine; Visit Provider Nurse Practitioner Family
DX: N20.0 Calculus of kidney (principal)
CPT/HCPCS: 99213

== ENCOUNTER → 2024-08-07 14:59 | Outpatient (BNVA) | payer BC, SELFPAY | PROVIDERS: PCP Internal Medicine; Visit Provider Nurse Practitioner Family | DX: N20.0 Calculus of kidney (principal) | CPT/HCPCS: 81003 ==

== ENCOUNTER 2024-08-30 14:47 | Outpatient (AMB) | payer BC, SELFPAY ==
[2024-08-30 14:54] VITALS: BP 146/80; PULSE 73; BMI 26.7
--- NOTE | 2024-08-30 14:54 | A.OFFVIS_ITS ---
Vital Signs 3 08/30/24 14:54 Height 5 ft 10 in Weight 186 lb BMI 26.7 BP 146/80 H Blood Pressure Location Lt brachial Position Sitting Pulse 73 Intake Visit Reasons: Colonoscopy Screening Intake Note: New patient in office today for colonoscopy screening. CC: Patient reports a few episodes per month of diarrhea. 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 She is referred by Cecilia Bae of [facility] in [place]. PMX Allergic rhinitis - Pt denies Nephrolithiasis History of left hydronephrosis Migraines History of colon polyps ? * SURGICAL HISTORY Tubal ligation Dental surgery procedure Colonoscopy-2013 * ALLERGIES: NKDA * PCP LABS: 03/2024 UNREMARKABLE CBC, UNREMARKABLE RENAL PANEL, UNREMARKABLE HEPATIC PANEL, TODAY'S VISIT Her last scope was at [facility] about 10 years ago. It was negative. She has occasional diarrhea that she thinks is dumping syndrome but it is not consistent and she does not feel she needs tx. She denies any cardiac or respiratory problems There are no prior problems with anesthesia or sedation. No ID problems Her sister had colon polyps, the pt does not remember if she had polyps. [facility] Medical History Hydronephrosis, left Surgical History H/O colonoscopy History of dental surgery History of tubal ligation Family History Father Brain tumor Paternal Grandmother Cancer Mother Breast cancer Sister Breast cancer Social History Alcohol intake: current Alcohol intake frequency: a few times a month Patient Tobacco Use Status: Never used Tobacco Review of Systems Const Denies fatigue, Denies fever(s), Denies night sweats, Denies poor appetite and Denies weight loss Eyes Details: glasses Reports requires corrective lenses ENT Reports Normal hearing present, Denies dental pain, Denies dysphagia, Denies hearing loss, Denies mouth pain, Denies odynophagia, Denies throat swelling, Denies tongue swelling and Reports other (Dentition adequate) Card Reports no additional complaints Resp Reports no additional complaints GI Details: Denies abdominal pain, Denies melena, Denies bloating, Denies hematochezia, Denies constipation, Denies GI cramping, Denies dysphagia, Denies excessive flatus, Denies early satiety, Denies heartburn, Reports diarrhea, Denies nausea, Denies odynophagia, Denies vomiting and Denies hematemesis Skin/Breast Denies pruritus, Denies lesions, Denies rash and Denies jaundice Neuro Reports Normal hearing present and Denies Abnormal speech present Endo Denies fatigue Aller/Immun Denies throat swelling and Denies tongue swelling Physical Exam Vital Signs: Last Vital Signs Pulse 73 08/30/24 14:54 BP 146/80 H 08/30/24 14:54 BMI result Body Mass Index 26.7 Const General: cooperative, no acute distress, well developed and well groomed Nutritional Appearance: average body habitus and well nourished Orientation/consciousness: oriented to person, oriented to place and oriented to time Limitations: No language barrier HEENT Head: Yes normocephalic and Yes atraumatic Eyes General: appearance normal, both eyes and all related structures Pupils: Equal, round and reactive pupils present Neck Neck: Yes normal visual inspection and Yes no lymphadenopathy Thyroid: Thyroid normal Resp Effort & Inspection: normal respiratory effort and able to speak in complete sentences Auscultation: clear to auscultation bilaterally Cardio Rate: regular rate Rhythm: regular rhythm Heart sounds: Normal, physiologic split S2 sound present Peripheral pulses: radial pulses present and posterior tibial pulses present GI Inspection: No distended, No Abdominal panniculus present and Yes obesity Palpation (GI): Soft to palpation, nontender, no guarding, not rigid and No hepatosplenomegaly present Percussion: Yes normal to percussion Auscultation: normal bowel sounds Rectal Exam - Female: deferred Abdomen image: 2 1. BB ring Skin General skin exam: no rashes or lesions noted, turgor normal, skin not dry, no jaundice, No spider nevi and no striae Rashes: no rashes Nails: normal Neuro General: oriented to person, oriented to place and oriented to time Cranial nerves: Yes Equal, round and reactive pupils present and Yes Normal hearing present Speech: No Abnormal speech present Extrem General: Yes normal to inspection, No clubbing, No cyanosis and No edema Psych Appearance: grossly normal and well kempt Mental Status: mental status grossly normal Speech and movement: Normal speech and movement present Affect: normal affect Attitude: cooperative Thought process: Normal thought process present and not confabulating Thought content: Normal thought content present Insight: Fair insight present (Psych) Judgement: Fair judgement present (Psych) Assessment & Plan Assessment & Plan (1) Pre-op examination: Code(s): Z01.818 - Encounter for other preprocedural examination Category: Medical (2) Family history of polyps in the colon: Comment: sister Code(s): Z83.719 - Family history of colon polyps, unspecified Category: Medical Plan Her last scope was at [facility] about 10 years ago. It was negative. She has occasional diarrhea that she thinks is dumping syndrome but it is not consistent and she does not feel she needs tx. She denies any cardiac or respiratory problems There are no prior problems with anesthesia or sedation. No ID problems Her sister had colon polyps, the pt does not remember if she had polyps Orders: Orders 2 Colonoscopy - GI Use Only Today Z01.818 - Encounter for other preprocedural examination Medications: New 2 sod sulf-pot chloride-mag sulf 1.479-0.188- 0.225 gram (Sutab) PO PER PKG DIR for colonoscopy prep 24 tabs 0RF Coding Level of Care Code New Pt Level 3 (80879) Diagnoses Pre-op examination Z01.818 Family history of polyps in the colon Z83.719
== END 2024-08-30 15:37 | disposition home or self-care (01) ==
PROVIDERS: PCP Internal Medicine; Visit Provider Nurse Practitioner
DX: Z01.818 Encounter for other preprocedural examination (principal); Z12.11 Encounter for screening for malignant neoplasm of colon; Z83.719 Family history of colon polyps, unspecified
CPT/HCPCS: S0285

== ENCOUNTER 2024-12-26 08:03 | Day surgery (SDC) | payer BC, SELFPAY ==
[2024-12-24 14:31] VITALS: BMI 26.7
--- NOTE | 2024-12-25 08:55 | P.CONAN_ITS ---
Documented by User: Antonietta Hill NP 12/25/24 08:56 HPI - Anesthesia Eval Consult details Narrative: 59yo F for Colonoscopy [facility] Active Problems Active Problems: All Active Problems Family history of polyps in the colon (Acute) Pre-op examination (Acute) Migraines (Acute) Allergic rhinitis (Acute) Nephrolithiasis (Acute) Past Medical History Medical History (Updated 12/24/24 @ 14:29 by Norma Diaz RN) Nephrolithiasis Migraines Family History Family History Father Brain tumor Paternal Grandmother Cancer Mother Breast cancer Sister Breast cancer Surgical History Surgical History (Updated 12/26/24 @ 08:38 by Niru Low RN) H/O exploratory laparotomy H/O colonoscopy History of dental surgery History of tubal ligation Social History Social History Alcohol intake: current Alcohol intake frequency: a few times a month Patient Tobacco Use Status: Never used Tobacco Use of substances other than those prescribed or required for medical reasons: No Are you DNR?: No Advance Directives: No Advance Directives Information Provided: Yes Patient : No : No Poor oral hygiene: No Meds Allergies Allergy/AdvReac Type Severity Reaction Status Date / Time No Known Allergies Allergy Verified 08/30/24 14:59 Home Medications ?Medication ?Instructions ?Recorded ?Confirmed ?Last Taken ?Type fluconazole 200 mg tablet 200 mg PO 2XW 08/30/24 Unknown History Exam Height,Weight and Vital Signs: Height 5 ft 10 in Weight 84.368 kg Assessment and Plan Assessment Anesthesia Assessment: Chart Reviewed Documented by User: Charlie Clay MD 12/26/24 09:58 PMFSH Past Medical History Medical History (Updated 12/24/24 @ 14:29 by Norma Diaz RN) Nephrolithiasis Migraines Family History Family History Father Brain tumor Paternal Grandmother Cancer Mother Breast cancer Sister Breast cancer Family history of problems with anesthesia: No Surgical History Surgical History (Updated 12/26/24 @ 08:38 by Niru Low RN) H/O exploratory laparotomy H/O colonoscopy History of dental surgery History of tubal ligation History of Problems with Anesthesia: No Social History Social History Alcohol intake: current Alcohol intake frequency: a few times a month Patient Tobacco Use Status: Never used Tobacco Use of substances other than those prescribed or required for medical reasons: No Are you DNR?: No Advance Directives: No Advance Directives Information Provided: Yes Patient : No : No Poor oral hygiene: No Meds Allergies Allergy/AdvReac Type Severity Reaction Status Date / Time No Known Allergies Allergy Verified 08/30/24 14:59 Home Medications ?Medication ?Instructions ?Recorded ?Confirmed ?Last Taken ?Type fluconazole 200 mg tablet 200 mg PO 2XW 08/30/24 Unknown History Exam Airway Mallampati Class: II TM Dist: <=3cm Neck ROM: Full Loose/Missing/Broken Teeth: No Heart: ok Lungs: ok Assessment and Plan Assessment Anesthesia Assessment: Anesthesia Plan Discussed Final Anesthetic Review Family History of Problems with Anesthesia: No History of Problems with Anesthesia: No NPO: Yes ASA Class: II Final Preanesthetic Review: No Changes in Pt Med Stat, Meds/Allgs Chart Reviewed, Consent Obtained/Reviewed and Anes Risks/Benef Reviewed Patient Risk: Intermediate Procedure Risk: Low Anesthetic Plan Anesthetic Plan: MAC: and Agree w/ Assess. and Plan Disposition: Standard PACU
[2024-12-26 08:39] VITALS: BMI 26.3
[2024-12-26 08:43] VITALS: BP 133/88; PULSE 74; RESP 16; TEMP 36.8; O2SAT 97
[2024-12-26] MEDS: Lactated Ringers 1,000 ML 100 ML IVCONT (08:54)
--- NOTE | 2024-12-26 09:13 | MHC.SHP ---
Pre-Procedural Eval Section A - 24 Hr Update-Section A only Date of Service: 12/26/24 Section B - Complete if H&P > 30 days Chief Complaint: screening Relevant Family History (Specify if Yes): No Relevant Social History: None Present Medications: see Short Stay Collaborative assessment Medical History: Significant History (Nephrolithiasis Migraines) History of Previous Operations: Relevant previous surgery/procedure and date(s) (H/O colonoscopy History of dental surgery History of tubal ligation) Allergies: Allergies Allergy/AdvReac Type Severity Reaction Status Date / Time No Known Allergies Allergy Verified 08/30/24 14:59 Review of Systems Sugical H&P ROS: Negative: Constitution, Cardiovascular, Respiratory, Neurological, Psychiatric, Hem-Onc, Allergic/Immunologic, Gastrointestinal, Genitourinary, Musculoskeletal, Integumentary, Endocrine and Eyes/Ears/Nose/Throat Exam Surgical H&P Exam: Normal: HEENT, Normal: Heart, Normal: Lungs, Normal: Extremities, Normal: Abdomen, Normal: Skin and Normal: Neurological Plan Diagnosis/Plan: Unchanged I have reviewed the history and physical and performed a pertinent physical examination on my patient. No changes have occurred unless specified. Time Spent With Patient Time: Total time managing care of this patient today ____ minutes.
--- NOTE | 2024-12-26 10:09 | HO.OPN-COLON ---
Colonoscopy Operative Note Operative Note Date of Service: 12/26/24 Narrative: Operative Information Procedure Description: Colonoscopy Indication: screening Anesthesia: MAC COLONOSCOPY Instrument: Olympus variable stiffness pediatric scope 190L Colonoscopy Monitoring: Vital signs and clinical assessment, continuous EKG monitoring, Pulse oximetry, Carbon Dioxide monitoring and blood pressure monitoring were done throughout the procedure. Colon withdrawal time was 8 minutes. Procedure: The patient was placed in the left lateral decubitis position and pre-procedure medications were administered. After a digital rectal examination of the ano-rectum, the video colonoscope was inserted into the rectum and advanced through the colon to the cecum/TI. The colonoscope was slowly withdrawn in a retrograde panoramic fashion and the colon mucosa was carefully examined including a retroflexed view of the rectum. Findings and interventions are described below. Procedure Difficulty: easy Findings: Terminal Ileum-normal Cecum:normal Right sided retroflexion- normal Ascending Colon: normal Transverse Colon -normal Descending Colon:normal Sigmoid Colon: mild diverticulosis Rectum: Retroflexion with small internal hemorrhoids seen, grade I, 6-8 mm sessile polyps x 2 removed with cold snare Anorectum - normal Intervention: cold snare Colon preparation: Charlotte Bowel Preparation Scale Right colon; 2 Transverse colon: 2 Left colon; 2 (0 = Unprepared colon segment with mucosa not seen due to solid stool that cannot be cleared. 1 = Portion of mucosa of the colon segment seen, but other areas of the colon segment not well seen due to staining, residual stool and/or opaque liquid. 2 = Minor amount of residual staining, small fragments of stool and/or opaque liquid, but mucosa of colon segment seen well. 3 = Entire mucosa of colon segment seen well with no residual staining, small fragments of stool or opaque liquid) Impression and Post Procedure Diagnosis: diverticulosis colon polyps x2 internal hemorrhoids Plan: High fiber diet leaflet Avoid straining at stool, epsom salts and sitz bath, anusol supps or cream Repeat Colonoscopy in 5 years due to polyps or earlier if clinically indicated Above findings were reviewed with the patient and relevant handouts were provided if indicated.
[2024-12-26 10:16] VITALS: BP 117/73; PULSE 79; RESP 17; TEMP 36.9; O2SAT 99
[2024-12-26 10:23] VITALS: BP 141/75; PULSE 70; RESP 16; O2SAT 99
[2024-12-26 10:25] VITALS: BP 145/78; PULSE 72; RESP 18; TEMP 36.8; O2SAT 99
== END 2024-12-26 10:49 | disposition home or self-care (01) ==
PROVIDERS: PCP Internal Medicine; Visit Provider Internal Medicine Gastroenterology
PROC: 0DJD8ZZ Inspection of Lower Intestinal Tract, Via Natural or Artificial Opening Endoscopic (ICD-10-PCS; CPT 45378; principal; 2024-12-26 10:50)
DX: Z12.11 Encounter for screening for malignant neoplasm of colon (principal); Z83.719 Family history of colon polyps, unspecified; D12.8 Benign neoplasm of rectum; K57.30 Diverticulosis of large intestine without perforation or abscess without bleeding; K64.0 First degree hemorrhoids; N20.0 Calculus of kidney; G43.909 Migraine, unspecified, not intractable, without status migrainosus; Z79.899 Other long term (current) drug therapy; Z98.890 Other specified postprocedural states
CPT/HCPCS: 45385; 88305; J2003; J2704

== ENCOUNTER → 2024-12-26 08:03 | Outpatient (BNV) | payer BC, SELFPAY | PROVIDERS: PCP Internal Medicine; Visit Provider Internal Medicine Gastroenterology | DX: Z12.11 Encounter for screening for malignant neoplasm of colon (principal); D12.8 Benign neoplasm of rectum; K57.30 Diverticulosis of large intestine without perforation or abscess without bleeding; K64.0 First degree hemorrhoids | CPT/HCPCS: 45385 ==

== ENCOUNTER 2025-01-21 15:36 | Outpatient (REF) | payer BC, SELFPAY ==
--- NOTE | ~2025-01-21 | US_ITS ---
EXAMINATION: US KIDNEY BILATERAL HISTORY: N20.0 - Calculus of kidney TECHNIQUE: Real-time grayscale ultrasound imaging of the kidneys was performed and images were reviewed. COMPARISON: Comparison is made with the prior examination dated 01/11/2024. FINDINGS: Right kidney: The right kidney measures 11.3 x 4.3 x 4.6 cm. Renal parenchymal echotexture and thickness are normal. There are no masses. There is no hydronephrosis or renal calculi. Left Kidney: The left kidney measures 10.0 x 4.8 x 5.4 cm. Renal parenchymal echotexture and thickness are normal. There are no masses. There is a 5 x 3 x 4 mm nonobstructing calculus at the lower pole. There is mild caliectasis without change. US/US renal BI IMPRESSION: 5 x 3 x 4 mm nonobstructing calculus at the lower pole of the left kidney. Mild left caliectasis without change. Electronically signed by: Jorge Lee MD 01/22/2025 07:09 AM EDT
== END 2025-01-21 15:37 | disposition home or self-care (01) ==
LOC: HO.US 15:36
PROVIDERS: PCP Internal Medicine; Visit Provider Nurse Practitioner Family
DX: N20.0 Calculus of kidney (principal)
CPT/HCPCS: 76775

== ENCOUNTER → 2025-01-21 15:39 | Outpatient (BNV) | payer BC, SELFPAY | PROVIDERS: PCP Internal Medicine; Visit Provider Radiology Diagnostic Radiology | DX: N20.0 Calculus of kidney (principal) | CPT/HCPCS: 76775 ==

== ENCOUNTER 2025-02-02 08:51 | Emergency (ER) | payer BC, SELFPAY ==
--- NOTE | ~2025-02-02 | XR_ITS ---
CLINICAL HISTORY: rolled right ankle 3 views right ankle Comparison: None Findings: No fractures, subluxations or dislocations. Ankle mortise intact. Normal plafond. No osteochondral lesions. Calcaneus and subtalar joint intact. Spurring distal head of the fibula. Posterior and plantar calcaneal enthesophytes Soft tissue swelling lateral malleolus. Accessory ossicle suspected distal to the medial malleolus. Normal pre-Achilles fat pad. No radiopaque foreign body. Impression: 1. Soft tissue swelling lateral malleolus. There is minimal spurring of the tip of the medial and lateral malleolus. Probable accessory ossicle or remote fracture distal tip medial malleolus correlate with palpation This document has been electronically signed by: Pola Munoz MD on 02/02/2025 09:54:49
--- NOTE | ~2025-02-02 | XR_ITS ---
CLINICAL HISTORY: pain 3 views right foot Comparison: None Findings: No fractures, subluxations or dislocations. No periostitis or bony destruction. Joint intervals are preserved. No marginal erosions or overhanging osteophytes Calcaneus and subtalar joint intact. Mild joint space narrowing of the interphalangeal joints. Posterior and plantar calcaneal enthesophytes. Normal bone mineralization and soft tissues. Normal pre-Achilles fat pad. Ring was not removed from the 2nd toe Impression: 1. No acute fractures or malalignment. This document has been electronically signed by: Pola Munoz MD on 02/02/2025 09:56:52
[2025-02-02 09:01] VITALS: BP 155/71; PULSE 77; RESP 18; TEMP 36.8; O2SAT 98; BMI 24.1
--- NOTE | 2025-02-02 09:12 | ED.LOWEXIN ---
HPI - Extremity Injury (Lower) General Chief Complaint: Extremity Injury, Lower Stated Complaint: ankle inj Time Seen by Provider: 02/02/25 09:12 Source: patient, family and RN notes reviewed Mode of arrival: ambulatory Limitations: no limitations History of Present Illness ED Provider: Arabella Elkins PA-C HPI Narrative: This is a 59-year-old female, with a history of migraines, who presents emergency department with concerns for right ankle pain since last night. Patient states that she was running, playing with her dog when suddenly she accidentally rolled her right ankle. She denies feeling any popping or cracking sensation during this. She states that she has been unable to bear weight secondary to pain. She has been resting, icing, elevating, and taking Motrin for her symptoms which has provided her with some relief. Denies hitting her head or LOC. She is not on anticoagulation. Denies previous injury to the ankle or foot in the past. No other complaints or concerns at this time. MD complaint: ankle injury Onset (ago): day(s) Type of Injury: inversion Place: home Severity: moderate Relieving factors: NSAID, cold therapy, immobilization and rest Exacerbating factors: weight bearing, movement and palpation Context: running Associated symptoms: swelling Other symptoms: none Treatments prior to arrival: cold therapy and NSAIDS Related Data Home Medications ?Medication ?Instructions ?Recorded ?Confirmed fluconazole 200 mg tablet 200 mg PO 2XW 08/30/24 Previous Rx's ?Medication ?Instructions ?Recorded acetaminophen 500 mg tablet 1,000 mg (2 x 500 mg) PO Q8H PRN 02/02/25 (Tylenol Extra Strength) pain #30 tabs ibuprofen 600 mg tablet 600 mg PO Q6H PRN pain #30 tabs 02/02/25 Allergies Allergy/AdvReac Type Severity Reaction Status Date / Time No Known Allergies Allergy Verified 02/02/25 09:06 Review of Systems Review of Systems: Yes all other systems are reviewed and are negative Constitutional: Constitutional: Reports as per [facility] Past Medical History Medical History (Updated 02/03/25 @ 00:00 by Michelle Portillo) Nephrolithiasis Migraines Surgical History (Updated 12/26/24 @ 08:38 by Niru Low RN) H/O exploratory laparotomy H/O colonoscopy History of dental surgery History of tubal ligation Family History Family History Father Brain tumor Paternal Grandmother Cancer Mother Breast cancer Sister Breast cancer Social History Social History Alcohol intake: current Alcohol intake frequency: a few times a month Patient Tobacco Use Status: Never used Tobacco Advance Directives: Yes Advance Directives Information Provided: Yes Advance Directives on File: No Patient : No Physical Exam Vital Signs: Vital Signs: Last Vital Signs Temp 98.3 F 02/02/25 11:00 Pulse 77 02/02/25 11:00 Resp 18 02/02/25 11:00 BP 155/71 H 02/02/25 11:00 Pulse Ox 98 02/02/25 11:00 O2 Del Method Room Air 02/02/25 11:00 BMI result Body Mass Index 24.1 Const: Other: General: Awake, alert, and oriented X3. No acute distress. HEENT: Normal inspection CVS: Normal heart rate and rhythm. Pulses normal. Respiratory: No respiratory distress Skin: Warm, dry, no rashes noted to exposed skin. Normal skin color. Normal skin turgor. Extremities: Right ankle with no obvious bony deformity. She does have edema noted over the lateral malleolus. Strong DP pulse. No open wounds or lacerations. Decreased range of motion secondary to pain. Neuro: Oriented X 3. No motor deficit. No sensory deficit. Medical Decision Making Medical Decision Making MDM Narrative: This is a 59-year-old female who presents emergency department with concerns for right ankle pain after inversion injury which occurred last night. On arrival, patient mildly hypertensive at 155/71, all other vital signs within normal limits. Differential diagnoses include fracture, contusion, sprain, strain. Will obtain x-rays to rule out any bony abnormalities. She took Motrin prior to her arrival. Course: 5 - x-rays reviewed with soft tissue swelling overlying the lateral malleolus, minimal spurring of the tip of the medial and lateral malleolus, probable accessory ossicle or remote fracture distal tip of the medial malleolus. She does have tenderness along the area of concern, overlying the medial malleolus. Given this, will treat as a possible fracture. She will be placed in a tall walking boot, and given crutches. She will follow-up with the family development extension specialist, given referral. Given strict return precautions. She understands and agrees with plan, stable for discharge. Differential Diagnosis Differential Diagnoses: The differential diagnosis associated with the presentation includes See above Radiology Impression Discussion of test interpretation with radiology: I have reviewed the radiologist's reading. Radiologist Impression: CLINICAL HISTORY: pain 3 views right foot Comparison: None Findings: No fractures, subluxations or dislocations. No periostitis or bony destruction. Joint intervals are preserved. No marginal erosions or overhanging osteophytes Calcaneus and subtalar joint intact. Mild joint space narrowing of the interphalangeal joints. Posterior and plantar calcaneal enthesophytes. Normal bone mineralization and soft tissues. Normal pre-Achilles fat pad. Ring was not removed from the 2nd toe Impression: 1. No acute fractures or malalignment. This document has been electronically signed by: Pola Munoz MD on 02/02/2025 09:56:52 Dictated By: Pola Munoz MD CLINICAL HISTORY: rolled right ankle 3 views right ankle Comparison: None Findings: No fractures, subluxations or dislocations. Ankle mortise intact. Normal plafond. No osteochondral lesions. Calcaneus and subtalar joint intact. Spurring distal head of the fibula. Posterior and plantar calcaneal enthesophytes Soft tissue swelling lateral malleolus. Accessory ossicle suspected distal to the medial malleolus. Normal pre-Achilles fat pad. No radiopaque foreign body. Impression: 1. Soft tissue swelling lateral malleolus. There is minimal spurring of the tip of the medial and lateral malleolus. Probable accessory ossicle or remote fracture distal tip medial malleolus correlate with palpation This document has been electronically signed by: Pola Munoz MD on 02/02/2025 09:54:49 Dictated By: Pola Munoz MD Discharge Plan Discharge Clinical Impression: Ankle fracture, Acute ankle pain Patient Disposition: Home, Self-Care Instructions: Ankle Fracture (ED), Crutch Instructions (ED) Additional Instructions: You were seen in the emergency department after injuring your right ankle. Your x-ray does show swelling along the outside of your ankle, as well as spurring (degenerative changes) in the outer and inner aspect of your ankle. There is also a accessory ossicle which could represent a fracture of the inner aspect of your ankle. Given this finding as well as tenderness along this area, we are treating this as a fracture. Please wear walking boot. Weightbear as tolerated with this. Use crutches. Alternate between ibuprofen and or Tylenol as needed for pain and symptoms. Rest, ice, elevate. Call the family development extension specialist for follow-up. You will see their number below. If any new or worsening symptoms occur including but not limited to worsening pain, changes in coloration of your foot or ankle, decreased sensation in your foot and ankle, please seek emergent care. Prescriptions: New ibuprofen 600 mg tablet 600 mg PO Q6H PRN (Reason: pain) Qty: 30 0RF acetaminophen [Tylenol Extra Strength] 500 mg tablet 1,000 mg PO Q8H PRN (Reason: pain) Qty: 30 0RF No Action fluconazole 200 mg tablet 200 mg PO 2XW Referrals: [facility] [place] [facility] [Provider Group] Interventions: ED Discharge Assessment Last Done: 02/02/25 11:00 Discharge Date/Time: 02/02/25 11:01 Print Language: Persian
[2025-02-02 11:00] VITALS: BP 155/71; PULSE 77; RESP 18; TEMP 36.8; O2SAT 98
== END 2025-02-02 11:01 | disposition home or self-care (01) ==
PROVIDERS: Emergency Provider Emergency Medicine; PCP Internal Medicine
DX: S82.891A Other fracture of right lower leg, initial encounter for closed fracture (principal); M79.671 Pain in right foot; X50.1XXA Overexertion from prolonged static or awkward postures, initial encounter; Y93.02 Activity, running; Y92.9 Unspecified place or not applicable; Y99.8 Other external cause status; Z79.899 Other long term (current) drug therapy
CPT/HCPCS: 73600; 73630; 99283

== ENCOUNTER → 2025-02-02 09:20 | Outpatient (BNV) | payer BC, SELFPAY | PROVIDERS: Emergency Provider Emergency Medicine; PCP Internal Medicine; Visit Provider Radiology Diagnostic Radiology | DX: M79.671 Pain in right foot (principal); M70.871 Other soft tissue disorders related to use, overuse and pressure, right ankle and foot | CPT/HCPCS: 73600; 73630 ==

== ENCOUNTER 2025-02-06 09:12 | Outpatient (AMB) | payer BC, SELFPAY ==
--- NOTE | 2025-02-06 09:12 | MHC.OFFVIS ---
Intake Visit Reasons: 6m Us(set) Intake Note: pt here today for:6m US(set) uro meds:None blood thinner:ibuprofen [employer] Director Required: No Allergies No Known Allergies Allergy (Verified 02/06/25 09:49) Medication List - Last Reconciled 02/06/25 by [employer] Person acetaminophen (Tylenol Extra Strength) 1,000 mg (2 x 500 mg) PO Q8H PRN ibuprofen 600 mg PO Q6H PRN HPI Comments Details: Eloina is a very pleasant 59-year-old female patient of Dr. Bae. She is being followed up on today via video telehealth for her history of nephrolithiasis. In discussion with the patient today she reports she was unable to make it to today's in office appointment as she has recently hurt her ankle and is currently on crutches and due to follow-up with orthopedics on Monday. Urologically she reports to be doing and feeling well. She denies having had any bothersome urinary issues or concerns since her last office visit. Recent renal imaging results were reviewed with the patient today 02/02 5 mm nonobstructing calculus in the left lower pole of the kidney mild left caliectasis without change. She denies urinary urgency, urinary frequency, incontinence, nocturia, hematuria, dysuria, foul smelling urine, changes to urinary stream, flank pain, fever, and or chills. She is happy with her current voiding parameters. Previous workup has included a 24 hour urine collection noting low urine volume at 1.30, we discussed consideration of treatment with potassium citrate however patient would like to manage urine volume as initial therapy. All questions were answered. She otherwise offers no other issues or concerns at this time. [facility] Medical History Nephrolithiasis Migraines Surgical History (Updated 12/26/24 @ 08:38 by Niru Low RN) H/O exploratory laparotomy H/O colonoscopy History of dental surgery History of tubal ligation Family History Father Brain tumor Paternal Grandmother Cancer Mother Breast cancer Sister Breast cancer Social History Alcohol intake: current Alcohol intake frequency: a few times a month Patient Tobacco Use Status: Never used Tobacco Review of Systems Const All systems reviewed & are unremarkable except as noted in HPI and below Physical Exam Const General: cooperative, healthy appearing, comfortable, no acute distress, well developed, alert and awake Orientation/consciousness: patient oriented x3 Limitations: crutches HEENT Head: Yes normal to inspection, Yes normocephalic and Yes atraumatic Ears: hearing grossly normal bilaterally Eyes General: appearance normal, both eyes and all related structures Neck Neck: Yes normal visual inspection and Yes trachea midline Chest Chest palpation & inspection: normal inspection of the chest Resp Effort & Inspection: normal respiratory effort and able to speak in complete sentences Cardio Rate: regular rate GI Inspection: Yes normal to inspection General: Yes no CVA tenderness Back/Spine/Pelvis Back: no CVA tenderness Skin General skin exam: no rashes or lesions noted Neuro General: patient oriented x3 Extrem General: Yes normal to inspection Psych Appearance: grossly normal and well kempt Mental Status: mental status grossly normal Speech and movement: Normal speech and movement present and Clear speech present Affect: normal affect Attitude: cooperative Thought process: Normal thought process present Thought content: Normal thought content present Insight: Good insight present (Psych) Judgement: Good judgement present (Psych) Telehealth Telehealth Telehealth Platform: Telephone Location of provider rendering services: practice address Location of patient: address on file Patient Identification confirmed using: Name, : Yes Telehealth method: video Patient verbally consented to treatment: Yes Patient verbally consented to billing insurance company: Yes Patient informed of any privacy concerns related to visit: Yes Minutes spent on Phone/Video with Pt.: 15 Results Reviewed Results Reviewed: Date of Service: 01/21/25 Procedure(s): US renal BI FINDINGS: Right kidney: The right kidney measures 11.3 x 4.3 x 4.6 cm. Renal parenchymal echotexture and thickness are normal. There are no masses. There is no hydronephrosis or renal calculi. Left Kidney: The left kidney measures 10.0 x 4.8 x 5.4 cm. Renal parenchymal echotexture and thickness are normal. There are no masses. There is a 5 x 3 x 4 mm nonobstructing calculus at the lower pole. There is mild caliectasis without change. IMPRESSION: 5 x 3 x 4 mm nonobstructing calculus at the lower pole of the left kidney. Mild left caliectasis without change. Assessment & Plan Assessment & Plan (1) Nephrolithiasis: Code(s): N20.0 - Calculus of kidney Category: Medical Plan Recent renal ultrasound results reviewed with the patient today; as noted above. She currently denies any bothersome urinary issues or concerns. She reports be happy with current voiding parameters. She reports to be drinking plenty of water daily; we discussed importance of continuing for history of nephrolithiasis as well as overall health and well-being. Continue adding 1 oz of lemon juice to water daily. Will continue with surveillance monitoring. Will obtain renal ultrasound in 1 year. Follow-up in 1 year with imaging to be completed prior; or sooner with any issues, concerns, and or questions. Orders: Orders US renal BI 364 Days N20.0 - Calculus of kidney Patient Instructions: The patient had an opportunity to ask questions regarding the treatment plan. All questions were answered. Physical exam, labs, and imaging were discussed and reviewed in detail. As well as risks, benefits, and discussion of treatment choices. No major barriers to understanding were identified. The patient expressed understanding and agreement with the above treatment plan. The patient was made aware they should contact our office by phone for worsening of their current condition, the appearance of new symptoms, or with any questions or concerns. Compliance is encouraged with any medications and follow up testing that is ordered. It is a privilege to be allowed the opportunity to participate in? your urological care.? Again, if you have any questions or concerns If you have any questions or concerns please do not hesitate to contact me. The office is [phone]. This note is constructed using voice recognition software. While every effort has been made to ensure accuracy sheet metal duct installer helper errors may have been included. Yours sincerely, [employer] Person Coding Level of Care Code Tele Est Pt Level 3 (38259) Diagnoses Nephrolithiasis N20.0
== END 2025-02-06 10:55 | disposition home or self-care (01) ==
LOC: HO.HUSH 09:12
PROVIDERS: PCP Internal Medicine; Visit Provider Nurse Practitioner Family
DX: N20.0 Calculus of kidney (principal)
CPT/HCPCS: 99213

== ENCOUNTER → 2025-02-06 09:12 | Outpatient (BNVA) | payer BC, SELFPAY | PROVIDERS: PCP Internal Medicine; Visit Provider Nurse Practitioner Family ==